=== PATIENT | male | born 1955 | race Caucasian/White ===

== ENCOUNTER 2018-07-25 16:37 | Emergency (ER) | payer BC ==
[~2018-07-25] VITALS: Ht 182.9 cm; Wt 90.9 kg
[~2018-07-25 16:37] MED LIST: AMBIEN 5MG TABLE5 MG PO; AMITRIPTYLINE H10 M1 PO; BENTYL 20MG20 MG/TAB PO; COPAXONE 20M20 MG/M1; DIAMOX 250MG250 MG PO; EFFEXOR XR75 MG/CAP PO; FIORICET W/CODE1 CA1 PO; FLEXERIL 1010 MG/TAB PO; GLUCOPHAGE1000 MG PO; GLUCOPHAGE500 MG/TAB PO; IMITREX50 MG PO; KLONOPIN 0.5MG0.5 MG PO; LIORESAL 1010 MG/TAB PO; LORTAB 5/500 501 TAB PO; NAPROSYN500 MG PO; NEURONTIN300 MG/CAP PO; PERCOCET 325 MG1 TAB PO; TOPAMAX 100MG100 M1 PO
[2018-07-25 16:43] VITALS: TEMP 97.2
[2018-07-25 16:58] LABS: BASO # 0.1 (0.0-0.2); BASO % 0.7 % (0.0-2.0); EOS # 0.5 (0.0-0.7); EOS % 5.4 % (0-4.0); GRAN # 5.6 (1.4-6.5); GRAN % 64.5 % (42.2-75.2); HEMATOCRIT 42.4 % (42.0-52.0); HEMOGLOBIN 14.3 g/dl (13.5-18.0); LYMPH # 1.9 (1.2-3.4); LYMPH % 22.4 % (20.0-51.0); MEAN CELL VOLUME 94 fl (80.0-100.0); MEAN CORPUSCULAR HEMOGLOBIN 32 pg (27.0-31.0); MEAN CORPUSCULAR HGB CONC 34 g/dl (33.0-37.0); MEAN PLATELET VOLUME 10.5 fl (7.4-10.4); MONO # 0.6 (0.1-0.6); MONO % 6.7 % (1.7-9.3); PLATELET COUNT 265 K/mm3 (130-400); RED BLOOD COUNT 4.53 M/mm3 (4.20-5.60); REDCELL DISTRIBUTION WIDTH-CV 12.8 % (11.5-14.5)
[2018-07-25 17:10] LABS: ALANINE AMINOTRANSFERASE 58 U/L (21-72); ALBUMIN 4.1 gm/dL (3.5-5.0); ALKALINE PHOSPHATASE 116 U/L (50-136); ANION GAP 8 mmol/L (7-16); AST,SGOT 37 U/L (15-37); BILIRUBIN,TOTAL 0.3 mg/dL (0.0-1.0); BLOOD UREA NITROGEN 12 mg/dL (9-20); CALCIUM 9.8 mg/dL (8.4-10.2); CARBON DIOXIDE 25 mmol/L (22-30); CHLORIDE 110 mmol/L (98-107); CREATININE, serum 1.14 mg/dL (0.66-1.25); GLUCOSE 337 mg/dL (74-106); POTASSIUM 4.3 mmol/L (3.4-5.0); SODIUM 143 mmol/L (137-145); TOTAL PROTEIN 6.7 gm/dL (6.4-8.2)
[2018-07-25] MEDS ORDERED: LIPITOR20 MG PO (17:15)
[2018-07-25] MEDS ORDERED: CORGARD20 MG PO (17:15)
[2018-07-25] MEDS ORDERED: NUVIGIL250 MG (17:16)
[2018-07-25 17:20] LABS: COLLECTION METHOD CLEAN CATCH
[2018-07-25 17:28] LABS: TROPONIN-I < 0.012 ng/mL (0.000-0.034)
[2018-07-25 17:33] LABS: MUCOUS Present /lpf; PH 5 (5-8); SQUAMOUS EPITHELIAL None Seen /hpf; URINE APPEARANCE Clear; URINE BACTERIA None Seen /hpf; URINE BILIRUBIN Negative (NEGATIVE); URINE BLOOD Negative (NEGATIVE); URINE COLOR Yellow; URINE GLUCOSE 3+ (NEGATIVE); URINE KETONE Negative (NEGATIVE); URINE LEUKOCYTE ESTERASE Negative (NEGATIVE); URINE NITRATE Negative (NEGATIVE); URINE PROTEIN(semi-quant) Negative (NEGATIVE); URINE RBC 0-2 /hpf; URINE UROBILINOGEN Negative (NEGATIVE)
[2018-07-25 17:40] LABS: TSH w REFLEX 0.644 uIU/mL (0.465-4.680)
[2018-07-25 18:19] LABS: ARTERIAL BLD GAS O2 SATURATION 96.1 % (92-100); ARTERIAL BLD GAS TCO2 CT 21.5; ARTERIAL BLOOD GAS BASE EXCESS -4.3 (-2-2); ARTERIAL BLOOD GAS HCO3 20.4 meq/L (22-26); ARTERIAL BLOOD GAS PCO2 36.2 mmHg (35-45); ARTERIAL BLOOD GAS PO2 89.8 mmHg (80-100); ARTERIAL BLOOD GAS pH 7.37 (7.35-7.45)
[2018-07-25] MEDS ORDERED: ANUSOL-HC2.5% RC (18:59)
[2018-07-25 19:02] VITALS: BP 179/89; PULSE 59
== END 2018-07-25 19:12 | disposition home or self-care (01) ==
LOC: COL.ER 16:37
PROVIDERS: Emergency Medicine
DX: T38.3X5A Adverse effect of insulin and oral hypoglycemic [antidiabetic] drugs, initial encounter (principal); E87.2 Acidosis; E11.9 Type 2 diabetes mellitus without complications; I10 Essential (primary) hypertension; R06.00 Dyspnea, unspecified; K64.9 Unspecified hemorrhoids; Z79.84 Long term (current) use of oral hypoglycemic drugs
CPT/HCPCS: J1815; J7030

== ENCOUNTER 2018-10-30 19:02 | Emergency (ER) | payer BC ==
[~2018-10-30] VITALS: Ht 182.9 cm; Wt 90.0 kg
[~2018-10-30 19:02] MED LIST changes: +ANUSOL-HC2.5% RC; +CORGARD20 MG PO; +LIPITOR20 MG PO; +NUVIGIL250 MG
[2018-10-30 19:07] VITALS: TEMP 98.9
[2018-10-30] MEDS ORDERED: TRESIBA FL100 UNIT/1 SQ (19:31)
[2018-10-30 20:17] LABS: BASO # 0.1 (0.0-0.2); BASO % 0.7 % (0.0-2.0); EOS # 0.3 (0.0-0.7); EOS % 3.1 % (0-4.0); GRAN # 8.3 (1.4-6.5); GRAN % 80.1 % (42.2-75.2); HEMATOCRIT 44.6 % (42.0-52.0); HEMOGLOBIN 14.8 g/dl (13.5-18.0); LYMPH # 0.9 (1.2-3.4); LYMPH % 9.1 % (20.0-51.0); MEAN CELL VOLUME 95 fl (80.0-100.0); MEAN CORPUSCULAR HEMOGLOBIN 32 pg (27.0-31.0); MEAN CORPUSCULAR HGB CONC 33 g/dl (33.0-37.0); MEAN PLATELET VOLUME 10.6 fl (7.4-10.4); MONO # 0.7 (0.1-0.6); MONO % 6.7 % (1.7-9.3); PLATELET COUNT 235 K/mm3 (130-400); REDCELL DISTRIBUTION WIDTH-CV 13.1 % (11.5-14.5)
[2018-10-30 20:21] LABS: ALBUMIN 4.2 gm/dL (3.5-5.0); BILIRUBIN,TOTAL 0.7 mg/dL (0.0-1.0); C-REACTIVE PROTEIN 1.4 mg/dL (0.0-0.9); CALCIUM 9.4 mg/dL (8.4-10.2); CREATININE, serum 1.28 mg/dL (0.66-1.25); POTASSIUM 4.3 mmol/L (3.4-5.0); TOTAL PROTEIN 7.1 gm/dL (6.4-8.2)
[2018-10-30 21:12] LABS: COLLECTION METHOD CLEAN CATCH
[2018-10-30 21:33] LABS: MUCOUS Present /lpf; PH 6 (5-8); SQUAMOUS EPITHELIAL None Seen /hpf; URINE APPEARANCE Clear; URINE BACTERIA None Seen /hpf; URINE BILIRUBIN Negative (NEGATIVE); URINE BLOOD Negative (NEGATIVE); URINE COLOR Yellow; URINE GLUCOSE 3+ (NEGATIVE); URINE KETONE Negative (NEGATIVE); URINE LEUKOCYTE ESTERASE Negative (NEGATIVE); URINE NITRATE Negative (NEGATIVE); URINE PROTEIN(semi-quant) Negative (NEGATIVE); URINE RBC 0-2 /hpf; URINE UROBILINOGEN Negative (NEGATIVE)
[2018-10-30] MEDS ORDERED: OMNICEF 300MG300 MG PO (23:46)
[2018-10-31 00:01] VITALS: BP 150/74; PULSE 72
== END 2018-10-31 00:05 | disposition home or self-care (01) ==
LOC: COL.ER 19:02
PROVIDERS: Emergency Medicine
DX: J20.9 Acute bronchitis, unspecified (principal); J02.9 Acute pharyngitis, unspecified; R53.81 Other malaise; Z79.4 Long term (current) use of insulin
CPT/HCPCS: J1100; J2405; J7030; Q9967

== ENCOUNTER 2018-11-01 23:30 | Emergency (ER) | payer BC ==
[~2018-11-01] VITALS: Ht 182.9 cm; Wt 88.6 kg
[~2018-11-01 23:30] MED LIST changes: +OMNICEF 300MG300 MG PO; +TRESIBA FL100 UNIT/1 SQ
[2018-11-01 23:33] VITALS: TEMP 98.5
[2018-11-02 00:32] LABS: BASO # 0.1 (0.0-0.2); BASO % 0.6 % (0.0-2.0); EOS # 0.4 (0.0-0.7); EOS % 4.5 % (0-4.0); GRAN % 59.4 % (42.2-75.2); HEMATOCRIT 41.3 % (42.0-52.0); HEMOGLOBIN 13.9 g/dl (13.5-18.0); LYMPH % 23.8 % (20.0-51.0); MEAN CELL VOLUME 93 fl (80.0-100.0); MEAN CORPUSCULAR HEMOGLOBIN 31 pg (27.0-31.0); MEAN CORPUSCULAR HGB CONC 34 g/dl (33.0-37.0); MEAN PLATELET VOLUME 10.5 fl (7.4-10.4); MONO % 11.3 % (1.7-9.3); PLATELET COUNT 203 K/mm3 (130-400); RED BLOOD COUNT 4.43 M/mm3 (4.20-5.60); REDCELL DISTRIBUTION WIDTH-CV 13.2 % (11.5-14.5)
[2018-11-02 00:41] LABS: INR 1.1 (0.8-3.0); PROTHROMBIN TIME 12.4 SECONDS (9.7-12.8)
[2018-11-02 00:53] LABS: ALANINE AMINOTRANSFERASE 58 U/L (21-72); ALBUMIN 3.9 gm/dL (3.5-5.0); ALKALINE PHOSPHATASE 100 U/L (50-136); ANION GAP 9 mmol/L (7-16); AST,SGOT 53 U/L (15-37); BILIRUBIN,TOTAL 0.5 mg/dL (0.0-1.0); BLOOD UREA NITROGEN 20 mg/dL (9-20); C-REACTIVE PROTEIN 2.9 mg/dL (0.0-0.9); CALCIUM 8.9 mg/dL (8.4-10.2); CARBON DIOXIDE 23 mmol/L (22-30); CHLORIDE 108 mmol/L (98-107); CREATININE, serum 1.25 mg/dL (0.66-1.25); GLUCOSE 103 mg/dL (74-106); POTASSIUM 3.9 mmol/L (3.4-5.0); SODIUM 140 mmol/L (137-145); TOTAL PROTEIN 6.7 gm/dL (6.4-8.2)
[2018-11-02 01:13] LABS: D-DIMER < 200.00 ng/mLDDu (200-230)
[2018-11-02 01:16] LABS: TROPONIN-I < 0.012 ng/mL (0.000-0.035)
[2018-11-02 01:38] LABS: MAGNESIUM 1.7 mg/dL (1.6-2.3)
[2018-11-02] MEDS ORDERED: TESSALON PERLE200 MG PO (03:17)
[2018-11-02 04:04] VITALS: BP 147/77; PULSE 68
== END 2018-11-02 04:08 | disposition home or self-care (01) ==
LOC: COL.ER 23:30
PROVIDERS: Emergency Medicine
DX: B34.9 Viral infection, unspecified (principal); G35 Multiple sclerosis; E78.5 Hyperlipidemia, unspecified; I10 Essential (primary) hypertension; E11.9 Type 2 diabetes mellitus without complications; J45.909 Unspecified asthma, uncomplicated; Z90.49 Acquired absence of other specified parts of digestive tract; Z98.890 Other specified postprocedural states; Z79.4 Long term (current) use of insulin
CPT/HCPCS: J2765; J2930; J3010; J7030

== ENCOUNTER 2019-04-09 18:28 | Emergency (ER) | payer BC, MEDICARE ==
[~2019-04-09] VITALS: Ht 182.9 cm; Wt 100.0 kg
[~2019-04-09 18:28] MED LIST changes: +TESSALON PERLE200 MG PO
[2019-04-09 18:38] VITALS: TEMP 97.7
[2019-04-09 19:24] LABS: BASO # 0.1 (0.0-0.2); BASO % 0.8 % (0.0-2.0); EOS # 0.6 (0.0-0.7); EOS % 5.3 % (0-4.0); GRAN # 6.9 (1.4-6.5); GRAN % 64.4 % (42.2-75.2); LYMPH # 2.4 (1.2-3.4); LYMPH % 22.7 % (20.0-51.0); MEAN CELL VOLUME 94 fl (80.0-100.0); MEAN CORPUSCULAR HEMOGLOBIN 32 pg (27.0-31.0); MEAN CORPUSCULAR HGB CONC 34 g/dl (33.0-37.0); MEAN PLATELET VOLUME 10.3 fl (7.4-10.4); MONO # 0.7 (0.1-0.6); MONO % 6.6 % (1.7-9.3); PLATELET COUNT 285 K/mm3 (130-400); REDCELL DISTRIBUTION WIDTH-CV 13.1 % (11.5-14.5)
[2019-04-09 19:38] LABS: ALANINE AMINOTRANSFERASE 35 U/L (21-72); ALBUMIN 4.3 gm/dL (3.5-5.0); ALKALINE PHOSPHATASE 119 U/L (50-136); ANION GAP 10 mmol/L (7-16); AST,SGOT 37 U/L (15-37); BILIRUBIN,TOTAL 0.3 mg/dL (0.0-1.0); BLOOD UREA NITROGEN 14 mg/dL (9-20); CALCIUM 9.7 mg/dL (8.4-10.2); CARBON DIOXIDE 23 mmol/L (22-30); CHLORIDE 110 mmol/L (98-107); CREATININE, serum 1.29 (0.66-1.25); GLUCOSE 111 mg/dL (74-106); POTASSIUM 4.2 mmol/L (3.4-5.0); SODIUM 143 mmol/L (137-145); TOTAL PROTEIN 7.1 gm/dL (6.4-8.2)
[2019-04-09 19:40] LABS: C-REACTIVE PROTEIN < 0.5 mg/dL (0.0-0.9)
[2019-04-09 19:48] LABS: TROPONIN-I < 0.012 ng/mL (0.000-0.035)
[2019-04-09] MEDS ORDERED: PROTONIX 40MG T40 MG PO (20:20)
[2019-04-09] MEDS ORDERED: CLEOCIN HC150 MG/CAP PO (20:20)
[2019-04-09 20:30] VITALS: BP 147/85; PULSE 66
== END 2019-04-09 20:30 | disposition home or self-care (01) ==
LOC: COL.ER 18:28
PROVIDERS: Emergency Medicine
DX: J02.9 Acute pharyngitis, unspecified (principal); E11.9 Type 2 diabetes mellitus without complications; F32.9 Major depressive disorder, single episode, unspecified; E78.00 Pure hypercholesterolemia, unspecified; Z79.4 Long term (current) use of insulin
CPT/HCPCS: J1100; J2405; J3010; J7030

== ENCOUNTER 2019-06-21 08:19 | Day surgery (SDC) | payer MEDICARE, BC ==
[~2019-06-21] VITALS: Ht 182.9 cm; Wt 94.4 kg
[~2019-06-21 08:19] MED LIST changes: +CLEOCIN HC150 MG/CAP PO; +PROTONIX 40MG T40 MG PO
[2019-06-21 08:46] VITALS: BP 137/79; PULSE 61; TEMP 97.8
[2019-06-21] MEDS ORDERED: NEURONTIN600 MG/TAB PO (08:58)
[2019-06-21] MEDS ORDERED: TOPAMAX50 MG PO ×2 (09:02→09:08)
[2019-06-21] MEDS ORDERED: PRILOSEC 20MG20 MG PO (09:09)
[2019-06-21] MEDS ORDERED: PROZAC 20MG20 MG PO (09:10)
[2019-06-21] MEDS ORDERED: SINEMET 25/101 UDTAB PO (09:11)
--- NOTE | 2019-06-21 09:19 | NUR ---
TO MAMI AT 0825- CALL LIGHT IN REACH
[2019-06-21 10:00] VITALS: BP 136/65; PULSE 63; TEMP 98.3
--- NOTE | 2019-06-21 10:00 | NUR ---
Patient arrives back to [place] alert, denies pain or nausea. Patient ambulates from cart to chair with standby assist and without any complications. Patient monitor applied, vitals stable. Patient's spouse at bedside.
--- NOTE | 2019-06-21 10:10 | NUR ---
Patient given water and muffin at this time.
[2019-06-21 10:15] VITALS: BP 123/69; PULSE 58
--- NOTE | 2019-06-21 10:20 | NUR ---
Patient tolerates food and drink without any complications. Denies pain or nausea. Reports he is ready to go home.
--- NOTE | 2019-06-21 10:30 | NUR ---
Dismissal instructions gone over with patient. Patient verbalized understanding, all questions answered.
[2019-06-21 10:31] VITALS: BP 126/72; PULSE 60
--- NOTE | 2019-06-21 10:35 | NUR ---
Patient dismissed via ambulation. Patient has steady gate and patient's spouse walking with him. Patient and spouse leave thanking staff for services.
== END 2019-06-21 10:35 | disposition home or self-care (01) ==
LOC: SDCO 08:19
DX: K21.9 Gastro-esophageal reflux disease without esophagitis (principal); K29.30 Chronic superficial gastritis without bleeding; K31.89 Other diseases of stomach and duodenum; K58.9 Irritable bowel syndrome, unspecified; E11.9 Type 2 diabetes mellitus without complications; G35 Multiple sclerosis; G89.29 Other chronic pain; F42.9 Obsessive-compulsive disorder, unspecified; D64.9 Anemia, unspecified; F41.9 Anxiety disorder, unspecified; G43.909 Migraine, unspecified, not intractable, without status migrainosus; Z90.49 Acquired absence of other specified parts of digestive tract; Z79.84 Long term (current) use of oral hypoglycemic drugs; Z79.899 Other long term (current) drug therapy; Z88.1 Allergy status to other antibiotic agents; Z88.3 Allergy status to other anti-infective agents; Z88.2 Allergy status to sulfonamides
CPT/HCPCS: J2704; J7030

== ENCOUNTER 2021-08-14 14:24 | Outpatient (RCR) | payer MEDICARE, OTHER ==
[~2021-08-14 14:24] MED LIST changes: +NEURONTIN600 MG/TAB PO; +PRILOSEC 20MG20 MG PO; +PROZAC 20MG20 MG PO; +SINEMET 25/101 UDTAB PO; +TOPAMAX50 MG PO
== END 2021-09-09 | disposition home or self-care (01) ==
LOC: WSST
DX: R49.0 Dysphonia (principal)

== ENCOUNTER 2021-10-21 12:05 | Inpatient (IN) | payer MEDICARE, OTHER ==
[~2021-10-21] VITALS: Ht 185.4 cm; Wt 88.8 kg
[~2021-10-21 12:05] MED LIST changes: +AMPYRA10 MG PO; +B-121000 MCG PO; +COPAXONE 20M20 MG/M1 SQ; +EFFEXOR-XR150 MG PO; +FIORICET 325 MG1 TA1 PO; +IMODIUM 2MG CAPS2 MG PO; +LEVEMIR FLEX100 U/ML SQ; +NORVASC 10MG10 MG PO; +NOVLOG SQ; +PREDNISONE20 MG PO; +QUESTRAN LI4 GM/5 GM PO; +TRESIBA100 UNIT/1 SQ; +TYLENOL 325MG325 MG PO; +VITAMIN B COMPL1 SGL PO; +VITAMIN D 50,1.25 MG PO; +VOLTAREN GEL 1%1 TU TP; +XALATAN EYE DROPS OU; +ZESTRIL 20MG TA20 MG PO; +ZYRTEC 10MG10 MG; +ZYRTEC 10MG10 MG PO; +ZYRTEC10MGSGL
[2021-10-21 16:28] VITALS: BP 170/79; PULSE 92; TEMP 97.5
[2021-10-21 16:38] VITALS: BP 170/79; PULSE 69; TEMP 97.5
[2021-10-21 18:00] VITALS: BP 160/110
--- NOTE | 2021-10-21 18:25 | NUR ---
Pt arrived to [facility] via w/c. Pt is A/O x4. His breathing is even and unlabored on RA. Lungs CTA. HRR. No N/V. POC discussed with patient who verbalizes understanding. Pt did have a lot of anxiety this afternoon, reported some chest pain at the time as well as a headache. States he felt overwhelmed with moving to a new room and upcoming therapies. Fioricet administered and assisted in relieving headache. Elevated BP, MIK Morgan notified. Pt resting more calmly, with his at bedside. Call light within reach.
--- NOTE | 2021-10-21 19:00 | NUR ---
RECEIVED CHANGE OF SHIFT REPORT FROM DAY SHIFT RN.
[2021-10-22 05:58] VITALS: BP 169/77; PULSE 72; TEMP 98.4
--- NOTE | 2021-10-22 07:10 | NUR ---
CHANGE OF SHIFT REPORT GIVEN TO DAY SHIFT RNs, KENDRICK.
--- NOTE | 2021-10-22 07:16 | NUR ---
Shift report recevied from art director RN.
--- NOTE | 2021-10-22 09:14 | NUR ---
ZACK met with the patient and his , Carolyn (ph#[phone]), to complete intake, as the patient is new to [facility]. The patient lives in [place] with his . He states that he needs some supervision with ADLs, which his assists with. He has a cane, walker, wheelchair, and motorized scooter. The patient's PCP is Dr. Amauri Manriquez and he receives his medications from [facility]. The patient does not have a DPOA-HC, but Carolyn states that the patient does have one completed and the form is at home. She states that she will bring it to the hospital, the next time she comes up. SW to continue to follow.
[2021-10-22 15:34] VITALS: BP 170/74; PULSE 74; TEMP 97.7
--- NOTE | 2021-10-22 19:00 | NUR ---
RECEIVED CHANGE OF SHIFT REPORT FROM DAY SHIFT RN. PATIENT RESTING IN BED WITH EXIT ALARM ON, CALL LIGHT WITHIN REACH. IN ROOM DURING REPORT.
[2021-10-23 05:24] VITALS: BP 176/84; PULSE 67; TEMP 97.7
--- NOTE | 2021-10-23 07:04 | NUR ---
CHANGE OF SHIFT REPORT GIVEN TO DAY SHIFT RNs, DELIO.
--- NOTE | 2021-10-23 14:33 | NUR ---
ZACK contacted the patient's , Carolyn, to review the IPR Team Conference Note with her. The team has set a tentative discharge for next , 10/31, with home health vs outpatient therapy. Carolyn is in agreement to the plan. She states that they would prefer outpatient therapy. Since the patient will likely need OT/ST as well, so informed Carolyn how [facility] only provides PT and we would need to look at a different clinic for those disciplines. Carolyn verbalized understanding and states that she will discuss this with the patient. A patient/family meeting was scheduled for next Thursday, 10/28, at 0930. ZACK then met with the patient and presented and reviewed the IPR Team Conference Note with him. He is in agreement to the plan and confirms that he would prefer outpatient therapy. He states that he is already set up at [facility] for PT and was suppose to be getting set up at [facility] for ST. ZACK to continue to follow.
[2021-10-23 17:08] VITALS: BP 147/65; PULSE 66; TEMP 98.1
--- NOTE | 2021-10-23 19:00 | NUR ---
RECEIVED CHANGE OF SHIFT REPORT FROM DAY SHIFT RN. BED ALARM ON, AT BEDSIDE, CALL LIGHT WITHIN REACH.
[2021-10-24 06:06] VITALS: BP 192/92; PULSE 55; TEMP 97.7
[2021-10-24 06:29] VITALS: BP 163/84
--- NOTE | 2021-10-24 07:15 | NUR ---
CHANGE OF SHIFT REPORT GIVEN TO DAY SHIFT RNKOSTA.
--- NOTE | 2021-10-24 13:15 | NUR ---
Admission QIM scores were reviewed by the team. Code of 6 chosen for eating was determined by team discussion to be the most usual performance for this patient during the assessment period. Code of 4 chosen for oral hygiene was determined by team discussion to be the most usual performance for this patient during the assessment period. Code of 4 chosen for toilet hygiene was determined by team discussion to be the most usual performance for this patient during the assessment period. Code of 3 chosen for shower/bathe self was determined by team discussion to be the most usual performance before interventions for this patient during the assessment period. Code of 4 chosen for upper body dressing was determined by team discussion to be the most usual performance before interventions for this patient during the assessment period. Code of 4 chosen for putting on/taking off footwear was determined by team discussion to be the most usual performance for this patient during the assessment period. Code of 4 chosen for rolling left to right was determined by team discussion to be the most usual performance before interventions for this patient during the assessment period. Code of 4 chosen for sit to lying was determined by team discussion to be the most usual performance before interventions for this patient during the assessment period. Code of 4 chosen for lying to sitting on side of bed was determined by team discussion to be the most usual performance for this patient during the assessment period. Code of 3 for chair/bed to chair transfers was determined by team discussion to be the most usual performance for this patient during the assessment period. Code of 3 chosen for walk 10 feet was determined by team discussion to be the most usual performance for this patient during the assessment period. Code of 88 chosen for walk 50 feet w/ 2 turns was determined by team discussion to be the most usual performance for this patient during the assessment period. Code of 88 chosen for walk 150 feet was determined by team discussion to be the most usual performance for this patient during the assessment period.--Katlin Cabrera,
[2021-10-24 17:03] VITALS: BP 142/77; PULSE 68; TEMP 97.3
--- NOTE | 2021-10-24 17:41 | NUR ---
PATIENT STABLE THIS SHIFT. COMPLAINED OF HEADACHES FREQUENTLY. OFFERED PRN MEDICATIONS. TOOK TYLENOL. PATIENT STILL COMPLAINING OF MILD HEADACHE BUT WANTS TO WAIT FOR MORE MEDICATION THERAPY. DENIES ANY OTHER PAIN AT THIS TIME. AMBULATES WELL ON OWN WITH USE OF WALKER. PARTICIPATED IN THERAPY TODAY WITH NO ISSUES. TAKES MEDS WHOLE. GOOD APPETITE. CONTINENT. NO CONFUSION NOTED THIS SHIFT, SPEAKS IN CLEAR FULL SENTENCES WITH GOOD INTENT.
--- NOTE | 2021-10-25 00:53 | NUR ---
Received report from day shift. Patient alert and oriented, resting in bed. Patient here for MS exacerbation. VSS. Patient complains of headache at this time, he relates it to being constipated and requests a suppository. PM meds given. Patient resting in bed with call light near.
[2021-10-25 04:50] VITALS: BP 142/77; PULSE 68; TEMP 97.3
[2021-10-25 05:14] LABS: BASO % 0.1 % (0.0-2.0); EOS # 0.2 K/mm3 (0.0-0.7); EOS % 1.6 % (0.0-4.0); GRAN # 9.2 K/mm3 (1.4-6.5); GRAN % 71.7 % (42.2-75.2); HEMATOCRIT 41.3 % (42.0-52.0); HEMOGLOBIN 14.2 g/dl (13.5-18.0); LYMPH # 2.5 K/mm3 (1.2-3.4); LYMPH % 19.4 % (20.0-51.0); MEAN CELL VOLUME 92 fl (80.0-100.0); MEAN CORPUSCULAR HEMOGLOBIN 32 pg (27-31); MEAN CORPUSCULAR HGB CONC 34 g/dl (33.0-37.0); MEAN PLATELET VOLUME 11.2 fl (7.4-10.4); MONO # 0.8 K/mm3 (0.1-0.6); MONO % 5.9 % (1.7-9.3); PLATELET COUNT 266 K/mm3 (130-400); REDCELL DISTRIBUTION WIDTH-CV 12.4 % (11.5-14.5)
[2021-10-25 05:28] LABS: CALCIUM 9.5 mg/dL (8.4-10.2); CREATININE, serum 1.33 mg/dL (0.72-1.25); MAGNESIUM 1.9 mg/dL (1.6-2.6); POTASSIUM 3.8 mmol/L (3.5-4.5)
--- NOTE | 2021-10-25 06:17 | NUR ---
Patient ambulated twice to the bathroom throughout shift. Patient denies any pain at this time and has no further complaints.
--- NOTE | 2021-10-25 07:10 | NUR ---
Patient is awake and resting in bed. Call light and bedside table are within reach. Will continue to monitor patient throughout shift.
--- NOTE | 2021-10-25 09:24 | NUR ---
Initial visit; Patient thanked [employer] for looking in on him and offering God's blessings and to keep him in [employer]'s prayers.
[2021-10-25 17:29] VITALS: BP 117/54; PULSE 71; TEMP 97.6
--- NOTE | 2021-10-25 20:00 | NUR ---
PT RESTING IN RECLINER. NEEDS REMINDED OF SAFETY. USES WALKER. PT TRIES TO GET UP ON OWN. ASSISTED TO BED. BED ALARM SET. CALL LIGHT IN REACH. DENIES FURTHER NEEDS.
--- NOTE | 2021-10-26 04:25 | NUR ---
PT HAS SLEPT THROUGH THE NIGHT. NO COMPLAINTS.
[2021-10-26 06:18] VITALS: BP 135/66; PULSE 61; TEMP 97.7
--- NOTE | 2021-10-26 08:00 | NUR ---
Patient laying in bed resting. A&Ox4. VSS. Denies pain and discomfort. Independent with feeds and using the urinal. Call light within reach. Bed alarm on
[2021-10-26 17:13] VITALS: BP 141/57; PULSE 92; TEMP 98.1
--- NOTE | 2021-10-26 17:45 | NUR ---
at the bedside. Patient standby assist to the bathroom. Independent with feeds and cares. A&Ox4. VSS. Reports pain in abdomen, no pain medication requested. Call light within reach. Bed alarm on
--- NOTE | 2021-10-26 19:52 | NUR ---
ASSISTED PT TO BR WITH WALKER WITH SBA. PT HAS STEADY AMB. DENIES COMPLAINTS. CALL LIGHT IN REACH.
--- NOTE | 2021-10-27 04:30 | NUR ---
PT UP TO BR WITH WALKER. VOIDED. BACK TO BED. CALL LIGHT IN REACH.
[2021-10-27 05:58] VITALS: BP 123/51; PULSE 59; TEMP 98.3
--- NOTE | 2021-10-27 06:17 | NUR ---
BLOOD SUGAR WAS 62. PROVIDED PROTEIN SNACK AND RECHECKED FOR RESULT OF 156 NOW.
--- NOTE | 2021-10-27 08:00 | NUR ---
Patient laying in bed, awake. A&Ox4. VSS. Denies pain and discomfort. Independent with feeds and standby assist with walker. Call light within reach. Bed alarm on
--- NOTE | 2021-10-27 17:17 | NUR ---
Patient had an uneventful day. Took a shower with assistance from and nursing staff. Reported having a BM today. A&Ox4. VSS. Independent with feeds and cares. Standby assist with walker. Call light within reach.
[2021-10-27 17:25] VITALS: BP 134/57; PULSE 74; TEMP 97.4
--- NOTE | 2021-10-27 20:00 | NUR ---
Pt doing well this evening. He does have some pain complaints in his RLQ. States he has had it for several days, not getting worse, but not getting better either. It was reported to me during shift change, and that physician is aware. Pt getting around very well with stand by assist. Pt is very talkative, in the room. PT denies any other needs, hopeful for a good nights sleep as he knows he will be busy with therapy tomorrow.
--- NOTE | 2021-10-28 04:08 | NUR ---
Pt has done well throughout the night. He has been sleeping most of the night. He has used his call light a couple of times to get up to use the bathroom. Pt remains steady on his feet using a walker and standby assist.
[2021-10-28 05:48] VITALS: BP 128/60; PULSE 72; TEMP 97.8
--- NOTE | 2021-10-28 08:20 | NUR ---
PT SITTING AT SIDE OF BED WORKING WITH THERAPY. PT ON ROOM AIR. PT STATES THAT HE IS HAVING SOME DISCOMFORT/BLOATING IN THE RIGHT SIDE OF HIS ABD. PT STATES "IT IS OK, I WILL PROBABLY WORK OUT THE SORENESS IN THERAPY." BOWEL SOUNDS ARE PRESENT. PT STATES NO NEEDS AT THIS TIME. CALL LIGHT IS WITHIN REACH.
--- NOTE | 2021-10-28 09:53 | NUR ---
ZACK and ZACK student attended the patient/family meeting. The patient's and son were at bedside. Also present was IPR Director, Dr. Mancini, PT, OT, and ST. IPR Director started by explaining the purpose of the meeting. Dr. Mancini then provided the patient and his family with a clinical update. PT/OT/ST discussed the patient's progress so far. Katlin, IPR Director, confirmed the discharge date for this , 10/31, with outpatient therapy. The patient and his family are in agreement to the plan. The patient states that he has chosen to switch outpatient therapy to the [facility] on the [place]. The team answered all questions. ZACK to schedule the appointments.
[2021-10-28 17:47] VITALS: BP 123/61; PULSE 77; TEMP 97.8
--- NOTE | 2021-10-29 01:30 | NUR ---
PATIENT DOING WELL TONIGHT. ALERT AND ORIENTED BUT IS REPETITIVE WITH QUESTIONS. C/O HEADACHE STARTING BUT NOT REQUESTING TYLENOL OR MIGRAINE MEDICINE AT THIS TIME. AMBULATES WITH WALKER AND STANDBY ASSIST TO BATHROOM THROUGHOUT NIGHT.
[2021-10-29 05:47] VITALS: BP 150/64; PULSE 64; TEMP 97.6
--- NOTE | 2021-10-29 08:47 | NUR ---
ZACK contacted [facility] to schedule the patient his outpatient PT/OT/ST appointments. The part time receptionist reports that they are pretty booked right now and she was only able to schedule the outpatient PT appointment for right now on 11/06 at 0930. She reports that PT will determine if the patient does need OT and they will schedule that with the patient. She states that she will also be checking with their ST on when they can get him in and give SW or the patient a call. ZACK notified the community support associate of the PT appointment.
[2021-10-29 15:53] VITALS: BP 142/63; PULSE 85; TEMP 97.4
--- NOTE | 2021-10-30 00:52 | NUR ---
ALERT AND OX4. VISITOR AT BEDSIDE DURING SHIFT CHANGE. PM MEDS GIVEN. PT MOD-I UP TO BR AND DOES WELL AMB W [place]. CALL LIGHT WI REACH.
--- NOTE | 2021-10-30 05:34 | NUR ---
RESTED THOUGH THE NIGHT WITHOUT INCIDENT. NEEDS ARE MET.
[2021-10-30 06:36] VITALS: BP 150/68; PULSE 66; TEMP 97.4
--- NOTE | 2021-10-30 07:21 | NUR ---
Shift report received from service engine repairer RN. Patient resting in bed. Call light is within his reach
--- NOTE | 2021-10-30 09:59 | NUR ---
Pt. sitting up in recliner in his room. He denies any pain or discomfort. Denies any nausea. He denies further needs at this time. Call light is within his reach
--- NOTE | 2021-10-30 15:00 | NUR ---
ZACK and ZACK student met with the patient to present the IPR Team Conference Note and to review the discharge plan for tomorrow with outpatient PT/OT/ST at [facility]. ZACK informed him of [facility]'s plan to follow up with him about the appointments. The patient verbalized understanding and is in agreement to the plan. He expressed is gratitude for [facility] and the hospital. ZACK presented the and read the IM form outloud to the patient. The patient verbalized understanding and agreement to discharge tomorrow. The patient signed the form. ZACK student provided him with a copy.
--- NOTE | 2021-10-30 15:27 | NUR ---
ZACK contacted [facility] to follow up about the ST appointment. An ST appointment was secured on 11/07 at 1100. The center receptionist reports that they are still not able to make the OT appointment yet and they will follow up with the patient on this. ZACK to notify the recovery unit operator of the appointment.
[2021-10-30 17:17] VITALS: BP 142/69; PULSE 79; TEMP 97.8
--- NOTE | 2021-10-30 20:25 | NUR ---
GAVE DULCOLAX SUPP FOR CONSTIPATION.
[2021-10-31 05:37] VITALS: BP 149/71; PULSE 68; TEMP 97.6
--- NOTE | 2021-10-31 06:46 | NUR ---
Shift report received from shift supervisor RN. Pt. is resting in bed. Call light is within his reach
[2021-10-31] MEDS ORDERED: NORVASC 10MG10 MG PO (09:48)
[2021-10-31] MEDS ORDERED: ZESTRIL 20MG TA20 MG PO (09:49)
[2021-10-31] MEDS ORDERED: HCTZ12.5TAB PO (09:51)
[2021-10-31] MEDS ORDERED: PREDNISONE20 MG PO (09:52)
[2021-10-31] MEDS ORDERED: TRESIBA FL100 UNIT/1 SQ ×2 (09:57→11:17)
[2021-10-31] MEDS ORDERED: FIORICET 325 MG1 TA1 PO (09:58)
[2021-10-31] MEDS ORDERED: MELATIN 3 MG-11 TAB PO (09:58)
--- NOTE | 2021-10-31 10:01 | NUR ---
The patient is to discharge back home with his today, 10/31, with outpatient PT/OT/ST at [facility]. SW to fax orders to [facility], once finalized. No additional needs at this time.
--- NOTE | 2021-10-31 11:22 | NUR ---
Pt. Health Summary and Discharge Instructions discussed with pt. and his spouse. Discussed the importance of keeping his follow up appointments. Personal belongings gathered by the spouse. Pt. escorted via wheelchair to car and seatbelted for ride home. Pt. and spouse had no further questions
== END 2021-10-31 11:15 | disposition home or self-care (01) | DRG 60 ==
LOC: MEDICAL 10-25 17:23
PROVIDERS: Internal Medicine; ADMIT Physical Medicine & Rehabilitation Sports Medicine
DX: G35 Multiple sclerosis (principal); G43.909 Migraine, unspecified, not intractable, without status migrainosus; E87.5 Hyperkalemia; E11.40 Type 2 diabetes mellitus with diabetic neuropathy, unspecified; I16.0 Hypertensive urgency; I12.9 Hypertensive chronic kidney disease with stage 1 through stage 4 chronic kidney disease, or unspecified chronic kidney disease; R47.81 Slurred speech; K59.00 Constipation, unspecified; E11.649 Type 2 diabetes mellitus with hypoglycemia without coma; K21.9 Gastro-esophageal reflux disease without esophagitis; N18.9 Chronic kidney disease, unspecified; R29.6 Repeated falls; G47.00 Insomnia, unspecified; R26.89 Other abnormalities of gait and mobility; F41.9 Anxiety disorder, unspecified; R19.7 Diarrhea, unspecified; R53.81 Other malaise; Z73.6 Limitation of activities due to disability; Z98.1 Arthrodesis status; Z88.1 Allergy status to other antibiotic agents; Z88.2 Allergy status to sulfonamides; Z88.8 Allergy status to other drugs, medicaments and biological substances; Z79.84 Long term (current) use of oral hypoglycemic drugs; Z79.4 Long term (current) use of insulin; Z79.52 Long term (current) use of systemic steroids; Z20.828 Contact with and (suspected) exposure to other viral communicable diseases
CPT/HCPCS: 99223; 99231-AI; 99232-AI; A9284; J1650; J1815; J7512

== ENCOUNTER → 2021-11-07 | Outpatient (RCR) | payer MEDICARE, OTHER ==
[~2021-11-07] MED LIST changes: +HCTZ12.5TAB PO; +MELATIN 3 MG-11 TAB PO
== END | disposition home or self-care (01) ==
LOC: WSST → MKS.ESL.PT 11-06 09:25 → WSST 11:00
DX: G35 Multiple sclerosis (principal)

== ENCOUNTER 2021-12-05 10:30 | Outpatient (RCR) | payer MEDICARE, OTHER | END 2021-12-07 | disposition home or self-care (01) | LOC: WSST | DX: R49.0 Dysphonia (principal); R47.1 Dysarthria and anarthria; R41.841 Cognitive communication deficit; G35 Multiple sclerosis ==

== ENCOUNTER → 2021-12-11 | Outpatient (CLI) | payer MEDICARE, OTHER | LOC: MHCPAIN 14:21 | DX: M54.6 Pain in thoracic spine (principal); G35 Multiple sclerosis | CPT/HCPCS: G0463 ==

== ENCOUNTER 2022-01-02 10:30 | Outpatient (RCR) | payer MEDICARE, OTHER | END 2022-01-07 | disposition home or self-care (01) | LOC: WSST | DX: R47.1 Dysarthria and anarthria (principal); R49.0 Dysphonia; R41.841 Cognitive communication deficit; G35 Multiple sclerosis ==

== ENCOUNTER → 2022-01-13 | Outpatient (CLI) | payer MEDICARE, OTHER | LOC: MHCPAIN 11:24 | DX: M54.6 Pain in thoracic spine (principal); M79.2 Neuralgia and neuritis, unspecified; G35 Multiple sclerosis | CPT/HCPCS: G0463 ==

== ENCOUNTER 2022-02-04 10:30 | Outpatient (RCR) | payer MEDICARE, OTHER | END 2022-02-06 | disposition home or self-care (01) | LOC: WSST | DX: R49.0 Dysphonia (principal); R41.841 Cognitive communication deficit; G35 Multiple sclerosis ==

== ENCOUNTER 2022-02-27 11:15 | Outpatient (RCR) | payer MEDICARE, OTHER | END 2022-03-09 | disposition home or self-care (01) | LOC: MKS.ESL.PT | DX: G35 Multiple sclerosis (principal); M54.6 Pain in thoracic spine; R47.1 Dysarthria and anarthria; R49.0 Dysphonia; R41.841 Cognitive communication deficit ==

== ENCOUNTER 2022-04-08 11:15 | Outpatient (RCR) | payer MEDICARE, OTHER | END 2022-04-09 | disposition home or self-care (01) | LOC: MKS.ESL.PT | DX: G35 Multiple sclerosis (principal) ==

== ENCOUNTER 2022-09-05 10:00 | Outpatient (RCR) | payer MEDICARE, OTHER ==
[~2022-09-05 10:00] MED LIST changes: +CEFTIN500 MG PO; +KERENDIA10 MG PO
[2022-09-22] MEDS ORDERED: NORCO 325 MG-51 TAB PO (19:53)
== END 2022-09-09 | disposition home or self-care (01) ==
LOC: MKS.ESL.PT
DX: G35 Multiple sclerosis (principal)

== ENCOUNTER 2022-09-20 23:13 | Emergency (ER) | payer MEDICARE, OTHER ==
[2022-09-20 23:26] VITALS: TEMP 98.5
[2022-09-21 00:15] LABS: BASO # 0.1 K/mm3 (0.0-0.2); BASO % 0.9 % (0.0-2.0); EOS # 0.3 K/mm3 (0.0-0.7); EOS % 3.4 % (0.0-4.0); GRAN # 5.6 K/mm3 (1.4-6.5); GRAN % 62.6 % (42.2-75.2); HEMOGLOBIN 11.4 g/dl (13.5-18.0); LYMPH # 1.9 K/mm3 (1.2-3.4); LYMPH % 21.8 % (20.0-51.0); MEAN CELL VOLUME 93 fl (80.0-100.0); MEAN CORPUSCULAR HEMOGLOBIN 32 pg (27-31); MEAN CORPUSCULAR HGB CONC 34 g/dl (33.0-37.0); MEAN PLATELET VOLUME 10.3 fl (7.4-10.4); PLATELET COUNT 298 K/mm3 (130-400); RED BLOOD COUNT 3.61 M/mm3 (4.20-5.60); REDCELL DISTRIBUTION WIDTH-CV 12.7 % (11.5-14.5)
[2022-09-21 00:16] LABS: HEMATOCRIT 33.4 % (42.0-52.0)
[2022-09-21 00:26] LABS: STREP SCREEN NEGATIVE
[2022-09-21 00:29] LABS: MONOSCREEN NEGATIVE
[2022-09-21 00:32] LABS: ALBUMIN 3.3 gm/dL (3.4-4.8); BILIRUBIN,TOTAL 0.5 mg/dL (0.2-1.2); CALCIUM 9.8 mg/dL (8.4-10.2); POTASSIUM 4.7 mmol/L (3.5-4.5)
[2022-09-21 00:53] LABS: TROPONIN-I 0.024 ng/mL (0.00-0.033); TSH w REFLEX 0.744 uIU/mL (0.350-4.940)
[2022-09-21 01:03] LABS: TOTAL PROTEIN 6.7 gm/dL (6.2-8.1)
[2022-09-21 01:35] LABS: COLLECTION METHOD CLEAN CATCH
[2022-09-21 01:45] LABS: PH 5.5 (5.0-8.5); URINE APPEARANCE Clear (CLEAR/HAZY); URINE BLOOD Negative (NEGATIVE); URINE COLOR Yellow (YELLOW); URINE GLUCOSE 2+ (NEGATIVE); URINE KETONE Negative (NEGATIVE); URINE NITRATE Negative (NEGATIVE); URINE PROTEIN(semi-quant) 1+ (NEGATIVE); URINE UROBILINOGEN 0.2 E.U/dL (0.2-1.0)
[2022-09-21 01:48] LABS: MUCOUS Present (NOT PRESENT); SQUAMOUS EPITHELIAL None Seen /hpf (0-10); URINE BACTERIA None Seen /hpf (NONE SEEN); URINE RBC None Seen /hpf (0-2)
[2022-09-21] MEDS ORDERED: MAGIC MOUTH PO (02:01)
[2022-09-21] MEDS ORDERED: AMOXICILLIN 50500 MG PO ×3 (02:01→02:13)
[2022-09-21 02:20] VITALS: BP 153/84; PULSE 98
[2022-09-22] MEDS ORDERED: NORCO 325 MG-51 TAB PO (19:53)
== END 2022-09-21 02:11 | disposition home or self-care (01) ==
LOC: COL.ER 23:13
PROVIDERS: Emergency Medicine
DX: J02.9 Acute pharyngitis, unspecified (principal); Z20.822 Contact with and (suspected) exposure to COVID-19; Z88.1 Allergy status to other antibiotic agents
CPT/HCPCS: J7120; J8540

== ENCOUNTER 2022-12-04 10:30 | Outpatient (RCR) | payer MEDICARE, OTHER ==
[~2022-12-04 10:30] MED LIST changes: +AMOXICILLIN 50500 MG PO; +MAGIC MOUTH PO; +NORCO 325 MG-51 TAB PO
== END 2022-12-07 | disposition home or self-care (01) ==
LOC: MKS.ESL.PT
DX: G35 Multiple sclerosis (principal)

== ENCOUNTER 2023-03-26 10:45 | Outpatient (RCR) | payer MEDICARE, OTHER | END 2023-04-09 | disposition home or self-care (01) | LOC: MKS.ESL.PT | DX: G35 Multiple sclerosis (principal); U07.1 COVID-19 ==

== ENCOUNTER 2023-05-07 13:30 | Outpatient (RCR) | payer MEDICARE, OTHER | END 2023-05-09 | disposition home or self-care (01) | LOC: MKS.ESL.PT | DX: G35 Multiple sclerosis (principal) ==

== ENCOUNTER 2023-09-16 14:30 | Outpatient (RCR) | payer MEDICARE, OTHER | END 2023-10-05 14:49 | disposition home or self-care (01) | LOC: MKS.ESL.PT 14:30 | DX: G35 Multiple sclerosis (principal) ==

== ENCOUNTER 2024-01-25 15:18 | Inpatient (IN) | payer MEDICARE, OTHER ==
[~2024-01-25] VITALS: Ht 180.3 cm; Wt 94.8 kg
[2024-01-25 15:54] LABS: BASO # 0.1 K/mm3 (0.0-0.2); BASO % 0.8 % (0.0-2.0); EOS # 0.5 K/mm3 (0.0-0.7); EOS % 3.6 % (0.0-4.0); GRAN # 11.1 K/mm3 (1.4-6.5); GRAN % 77.8 % (42.2-75.2); LYMPH # 1.8 K/mm3 (1.2-3.4); LYMPH % 12.3 % (20.0-51.0); MEAN CELL VOLUME 97 fl (80.0-100.0); MEAN CORPUSCULAR HEMOGLOBIN 31 pg (27-31); MEAN CORPUSCULAR HGB CONC 33 g/dl (33.0-37.0); MEAN PLATELET VOLUME 10.2 fl (7.4-10.4); MONO # 0.7 K/mm3 (0.1-0.6); PLATELET COUNT 338 K/mm3 (130-400); RED BLOOD COUNT 3.82 M/mm3 (4.20-5.60); REDCELL DISTRIBUTION WIDTH-CV 13.1 % (11.5-14.5)
[2024-01-25 15:55] LABS: HEMATOCRIT 36.9 % (42.0-52.0)
[2024-01-25] MEDS ORDERED: LR 1,000 ML IV ONE ×2 (16:00→16:45)
[2024-01-25 16:15] LABS: ALANINE AMINOTRANSFERASE 30 U/L (0-55); ALBUMIN 3.8 g/dL (3.4-4.8); ALKALINE PHOSPHATASE 110 U/L (40-150); ANION GAP 13 mmol/L (7-16); AST,SGOT 22 U/L (5-34); BILIRUBIN,TOTAL 0.6 mg/dL (0.2-1.2); BLOOD UREA NITROGEN 28 mg/dL (8-26); CALCIUM 10.1 mg/dL (8.4-10.2); CHLORIDE 102 mEq/L (98-107); CREATININE, serum 2.88 mg/dL (0.72-1.25); LIPASE 62 U/L (8-78); POTASSIUM 5.3 mEq/L (3.5-4.5); SODIUM 133 mEq/L (136-145); TOTAL PROTEIN 6.6 g/dl (6.2-8.1)
[2024-01-25 16:29] LABS: GLUCOSE 406 mg/dL (70-99); TROPONIN-I < 0.010 ng/mL (0.00-0.033)
[2024-01-25 17:49] LABS: COLLECTION METHOD CLEAN CATCH
[2024-01-25 17:54] LABS: URINE APPEARANCE CLEAR (CLEAR/HAZY); URINE BLOOD TRACE (NEGATIVE); URINE COLOR ORANGE (YELLOW); URINE GLUCOSE 3+ (NEGATIVE); URINE KETONE NEGATIVE (NEGATIVE); URINE NITRATE POSITIVE (NEGATIVE); URINE PROTEIN(semi-quant) 1+ (NEGATIVE)
[2024-01-25] MEDS ORDERED: LR 500 ML IV ONE (19:00)
[2024-01-25] MEDS ORDERED: Insulin Lispro (HumaLOG) SQ SCH (20:51)
[2024-01-25] MEDS ORDERED: Heparin 5,000 UNITS/ML 1 ML VIAL SQ SCH (20:58)
[2024-01-25] MEDS ORDERED: Insulin Regular Human (NovoLIN R/HumuLIN R) IV ONE (21:00)
[2024-01-25] MEDS ORDERED: Insulin Glargine-ygfn (Lantus) SQ ONE (21:00)
[2024-01-25] MEDS ORDERED: AMITRIPTYLINE H50 M1 PO (21:11)
[2024-01-25] MEDS ORDERED: AMBIEN 10MG10 MG PO (21:12)
[2024-01-25] MEDS ORDERED: KERENDIA10 MG PO (21:14)
[2024-01-25] MEDS ORDERED: TRESIBA FL100 UNIT/1 SQ (21:16)
[2024-01-25] MEDS ORDERED: CIPRO 500MG TA500 MG PO (21:17)
[2024-01-25] MEDS ORDERED: GLUCOTROL10 MG PO (21:18)
[2024-01-25] MEDS ORDERED: FLOMAX 0.40.4 MG/CAP PO (21:19)
[2024-01-25] MEDS ORDERED: VENLAFAXINE225 MG PO (21:20)
--- NOTE | 2024-01-25 21:31 | NUR ---
REPORT RECIEVED FROM JENN LOGAN IN THE ER AT THIS TIME.
[2024-01-25] MEDS ORDERED: Dextrose 50% Water 25 GM/50 ML SYRINGE IV PRN (21:45)
[2024-01-25] MEDS ORDERED: Glucagon 1 MG VIAL IM PRN (21:45)
[2024-01-25] MEDS ORDERED: Dextrose (Glucose) 15 GM (4 x 3.75 GM) Chewable TABLET PACK PO PRN (21:45)
[2024-01-25] MEDS ORDERED: *Potassium Replacement Protocol MC SCH (21:45)
[2024-01-25 22:00] VITALS: BP 148/79; PULSE 63; TEMP 97.6
--- NOTE | 2024-01-25 22:00 | NUR ---
MALE PATIENT ARRIVED TO ROOM #308 VIA WHEELCHAIR FROM ER. PATIENT ASSISTED UP TO BATHROOM WITH STAND BY ASSIST. PATIENT GAIT STEADY. PATIENT VOIDED 50 ML OF CLEAR STEPHANIE URINE. PATIENT ASSISTED TO BED AND HELPED TO REPOSITION FOR COMFORT. INT TO RIGHT FOREARM INTACT WITH NO COMPLICATIONS NOTED. TELEMETRY INTACT. LR STARTED BACK INFUSING INTO RIGHT FOREARM WITH NO COMPLICATIONS NOTED. INITAL INTAKE AND ASSESSMENT COMPLETED AT THIS TIME. VITAL SIGNS STABLE. PATIENT ON ROOM AIR. BLOOD SUGAR CHECKED WITH RESULT OF 124. PATIENT REQUESTED SOMETHING TO EAT AND WAS GIVEN SANDWICH TRAY WITH PITCHER OF ICE WATER. PATIENT AND VERBALIZED UNDERSTANDING OF CALL LIGHT AND BED CONTROLS. PATIENT ALSO VERBALIZED UNDERSTANDING THAT HOSPITALIST WOULD BE CALLED ABOUT ORDER FOR REGULAR INSULIN ORDER FOR CLAIRIFICATION. PATIENT DENIES ANY OTHER NEEDS AT THIS TIME. BED IN LOW POSITION WITH WHEELS LOCKED WITH RAILS UP X3 AND CALL LIGHT WITHIN REACH. BED ALARM ON.
[2024-01-25] MEDS ORDERED: COPAXONE 20M20 MG/M1 SQ (22:47)
[2024-01-25] MEDS ORDERED: NS 1,000 ML IV SCH (23:45)
--- NOTE | 2024-01-25 23:45 | NUR ---
HOSPITALIST KERRIE MCBRIDE TALKED TO ABOUT PATIENT'S HOME MED REC, REGULAR INSULIN ORDERED, AND ORDERED LANTUS. NEW ORDERS RECIEVED IN EMAR AND VERBAL ORDER RECIEVED TO HOLD OFF ON REGULAR INSULIN BUT GIVE LANTUS INSULIN.
[2024-01-26] VITALS (12 sets, daily range): BP systolic 117–168; BP diastolic 58–86; PULSE 51–87; TEMP 97.5–98.2
--- NOTE | 2024-01-26 00:25 | NUR ---
PATIENT CALLED PRIMARY NURSE TO ROOM. PATIENT SITTING ON EDGE OF BED AFTER TRYING TO AMBULATE TO BATHROOM DUE URGENCY TO VOID. PATIENT STATED "I TRIED TO CLEAN IT UP." URINE NOTED TO FLOOR OF BATHROOM COMING OUT TOWARD BED. PATIENT ASSURED THAT IT WAS OKAY AND WOULD BE CLEANED UP BY PRIMARY NURSE. GOWN CHANGED AND NEW NON-SKID SOCKS APPLIED TO FEET. PATIENT ASSISTED TO REPOSITION IN BED FOR COMFORT AND CONDUM CATH APPLIED PER DR. SALAZAR PERVIOUS CONVERSTATION WITH PATIENT. PATIENT TOLERATED WELL. PATIENT DENIES ANY OTHER NEEDS. BED IN LOW POSITION WITH WHEELS LOCKED WITH RAILS UP X3 AND CALL LIGHT WITHIN REACH. BED ALARM ON.
--- NOTE | 2024-01-26 03:55 | NUR ---
PATIENT C/O RIGHT FOOT TINGLING AND BURNING ALONG WITH PAIN. HOSPITALIST KERRIE TANNER APRN TALKED TO IN HALLWAY AND VERBAL ORDER RECIEVED TO GIVE MORNING DOSE OF KLONOPIN AND NEURONTIN ALONG WITH NEW ORDER FOR TYLENOL.
[2024-01-26] MEDS ORDERED: Acetaminophen 325 MG TAB PO PRN (04:00)
[2024-01-26 06:52] LABS: BASO # 0.1 K/mm3 (0.0-0.2); BASO % 0.5 % (0.0-2.0); EOS # 0.6 K/mm3 (0.0-0.7); EOS % 6.2 % (0.0-4.0); GRAN # 5.5 K/mm3 (1.4-6.5); GRAN % 59.9 % (42.2-75.2); HEMOGLOBIN 10.4 g/dl (13.5-18.0); LYMPH # 2.4 K/mm3 (1.2-3.4); LYMPH % 26.4 % (20.0-51.0); MEAN CELL VOLUME 95 fl (80.0-100.0); MEAN CORPUSCULAR HEMOGLOBIN 31 pg (27-31); MEAN CORPUSCULAR HGB CONC 32 g/dl (33.0-37.0); MEAN PLATELET VOLUME 10.3 fl (7.4-10.4); MONO # 0.6 K/mm3 (0.1-0.6); MONO % 6.6 % (1.7-9.3); PLATELET COUNT 265 K/mm3 (130-400); RED BLOOD COUNT 3.39 M/mm3 (4.20-5.60); REDCELL DISTRIBUTION WIDTH-CV 13.1 % (11.5-14.5)
[2024-01-26 06:56] LABS: HEMATOCRIT 32.2 % (42.0-52.0)
[2024-01-26 07:01] LABS: ALBUMIN 3.2 g/dL (3.4-4.8); CALCIUM 9.4 mg/dL (8.4-10.2); CREATININE, serum 2.39 mg/dL (0.72-1.25); MAGNESIUM 1.8 mg/dL (1.6-2.6); PHOSPHOROUS 3.1 mg/dL (2.3-4.7); POTASSIUM 4.2 mEq/L (3.5-4.5)
[2024-01-26] MEDS ORDERED: Gabapentin 300 MG CAP PO SCH (09:00)
[2024-01-26] MEDS ORDERED: clonazePAM 0.5 MG TAB PO SCH (09:00)
--- NOTE | 2024-01-26 09:20 | NUR ---
Patient alert and oriented and in no distress. at bedside visiting. Patient reports some discomfort around his "prostate area". Luis Daniel has an external liberty catheter which is freely draining clear yellow urine. No complications noted with catheter. Denies any other concerns or complaints at this time. Notified hospitalist about patient's complaint of pain. Awaiting further orders.
[2024-01-26] MEDS ORDERED: Patient's Own Medication Item SQ SCH (11:00)
[2024-01-26] MEDS ORDERED: oxyCODONE 5 MG TAB PO PRN (11:00)
--- NOTE | 2024-01-26 11:28 | NUR ---
Social work student met with patient to discuss discharge planning. Patient lives is retired and lives in [place] with [place] (Carolyn) (ph#[phone]) and sees Dr. Manriquez for primary care. Patient gets medications from [facility] with no difficulties affording. Patient uses a cane for safety and is independent with ADLS. Patient states he has DPOA-HC which designates his [place]. Patient plans to return home at time of discharge. Discharge plan: home
[2024-01-26] MEDS ORDERED: VITAMIN D 50,1.25 MG PO (12:13)
[2024-01-26] MEDS ORDERED: Acetaminophen 500 MG TAB PO SCH (14:00)
--- NOTE | 2024-01-26 20:42 | NUR ---
PATIENT RESTING IN BED WITH TV OFF WITH NO FAMILY PRESENT WITH NO ACUTE DISTRESS NOTED. PATIENT ON ROOM AIR. NS INFUSING INTO RIGHT FOREARM WITH NO COMPLICATIONS NOTED. CONDOM CATH INTACT, PATENT, AND DRAINING ORGANE CLEAR URINE. ASSESSMENT AND MEDICATION ADMINISTRATION COMPLETED AT THIS TIME. PAIENT TOLERATED WELL. PATIENT C/O BACK ITCHING. LOTION APPLIED. PATIENT REQUESTED ICE AND WAS GIVEN. ALL NEEDS MET. BED IN LOW POSITION WITH WHEELS LOCKED WITH RAILS UP X3 AND CALL LIGHT WITHIN REACH. BED ALARM ON.
[2024-01-26] MEDS ORDERED: Amitriptyline 50 MG TAB PO SCH (21:00)
[2024-01-26] MEDS ORDERED: Atorvastatin 20 MG TAB PO SCH (21:00)
[2024-01-26] MEDS ORDERED: Insulin Lispro (HumaLOG) SQ SCH (21:00)
[2024-01-27] VITALS (12 sets, daily range): BP systolic 103–160; BP diastolic 65–83; PULSE 77–82; TEMP 97.6–98.3
[2024-01-27 06:54] LABS: BASO # 0.1 K/mm3 (0.0-0.2); BASO % 0.7 % (0.0-2.0); EOS # 0.2 K/mm3 (0.0-0.7); EOS % 2.2 % (0.0-4.0); GRAN # 5.4 K/mm3 (1.4-6.5); HEMOGLOBIN 11.2 g/dl (13.5-18.0); LYMPH # 1.7 K/mm3 (1.2-3.4); LYMPH % 21.5 % (20.0-51.0); MEAN CELL VOLUME 98 fl (80.0-100.0); MEAN CORPUSCULAR HEMOGLOBIN 32 pg (27-31); MEAN CORPUSCULAR HGB CONC 32 g/dl (33.0-37.0); MEAN PLATELET VOLUME 10.9 fl (7.4-10.4); MONO # 0.4 K/mm3 (0.1-0.6); MONO % 5.3 % (1.7-9.3); PLATELET COUNT 225 K/mm3 (130-400); RED BLOOD COUNT 3.55 M/mm3 (4.20-5.60); REDCELL DISTRIBUTION WIDTH-CV 12.9 % (11.5-14.5)
[2024-01-27 07:13] LABS: ALBUMIN 3.3 g/dL (3.4-4.8); CALCIUM 9.6 mg/dL (8.4-10.2); CREATININE, serum 2.12 mg/dL (0.72-1.25); MAGNESIUM 1.7 mg/dL (1.6-2.6); PHOSPHOROUS 3.5 mg/dL (2.3-4.7); POTASSIUM 4.4 mEq/L (3.5-4.5)
[2024-01-27 08:11] LABS: HEMATOCRIT 34.8 % (42.0-52.0)
[2024-01-27] MEDS ORDERED: Acetamin/Butalbital/Caffeine 325-50-40 MG TAB PO PRN (09:30)
--- NOTE | 2024-01-27 11:02 | NUR ---
Patient alert and oriented x4. Complains of headache, scheduled Tylenol administered. Orders obained for new PRN medication for headache relief. Tolerating food and fluids well. Tolerating x1 assistance with activity around room. Telemetry discontinued per orders. Condom catheter removed, patient voiding into urinal and ambulating to bathroom. NS and Zosyn infusing per orders. at bedside. Call light within reach, fall precautions in place.
--- NOTE | 2024-01-27 14:03 | NUR ---
Social work student met with patient to discuss home health. SW provided [email or web address] list of HH agencies and patient was unsure he would need services. Patient stated he would review list with and let SW know what they decide tomorrow morning. SW will follow up tomorrow morning.
--- NOTE | 2024-01-27 20:34 | NUR ---
PATIENT RESTING IN BED WATCHING IN TV. IS AT BEDSIDE. PATIENT IS CURRENTLY STABLE ON ROOM AIR AND DENIES ANY PAIN AT THIS TIME. CALL LIGHT IS WITHIN REACH. BED LOCKED AND IN LOW POSTIION.
[2024-01-28 01:47] VITALS: BP_SYST 160
[2024-01-28 03:03] VITALS: BP 151/77; PULSE 75; TEMP 98
[2024-01-28 04:30] VITALS: BP_SYST 151
[2024-01-28 06:48] LABS: BASO # 0.1 K/mm3 (0.0-0.2); EOS # 0.5 K/mm3 (0.0-0.7); EOS % 8.7 % (0.0-4.0); GRAN # 2.6 K/mm3 (1.4-6.5); GRAN % 50.2 % (42.2-75.2); HEMOGLOBIN 10.9 g/dl (13.5-18.0); LYMPH # 1.8 K/mm3 (1.2-3.4); LYMPH % 34.1 % (20.0-51.0); MEAN CELL VOLUME 97 fl (80.0-100.0); MEAN CORPUSCULAR HEMOGLOBIN 31 pg (27-31); MEAN CORPUSCULAR HGB CONC 32 g/dl (33.0-37.0); MEAN PLATELET VOLUME 10.5 fl (7.4-10.4); MONO # 0.3 K/mm3 (0.1-0.6); MONO % 5.2 % (1.7-9.3); PLATELET COUNT 258 K/mm3 (130-400); RED BLOOD COUNT 3.48 M/mm3 (4.20-5.60); REDCELL DISTRIBUTION WIDTH-CV 13.1 % (11.5-14.5)
[2024-01-28 06:55] LABS: HEMATOCRIT 33.9 % (42.0-52.0)
[2024-01-28 07:07] LABS: ALBUMIN 3.3 g/dL (3.4-4.8); CALCIUM 9.7 mg/dL (8.4-10.2); CREATININE, serum 2.24 mg/dL (0.72-1.25); MAGNESIUM 1.7 mg/dL (1.6-2.6); PHOSPHOROUS 2.8 mg/dL (2.3-4.7); POTASSIUM 4.3 mEq/L (3.5-4.5)
[2024-01-28 07:40] VITALS: BP 131/76; PULSE 73; TEMP 98.7
[2024-01-28] MEDS ORDERED: LEVAQUIN 2250 MG/TAB PO (08:33)
--- NOTE | 2024-01-28 09:05 | NUR ---
patient alert and oriented x4. patient reported some headache but did not want medication for it. patient is room air. at bedside. patient sitting in bed resting. call light within reach. bed at lowest position. bed alarm on.
--- NOTE | 2024-01-28 09:40 | NUR ---
patient was given discharge orders. patient denied any questions. patient IV removed. patient instructed to call when ready for PCT to escort patient to hospital entrace via wheelchair. call light within reach. bed at lowest position.
[2024-01-28 09:47] VITALS: BP_SYST 131
--- NOTE | 2024-01-28 14:40 | NUR ---
[facility]co was notified patient discharged home. SW contacted patient to follow up on Home Health. Patient stated he did not feel he needed these services at this time. SW encouraged patient that he could always contact his PCP if he changes his mind.
== END 2024-01-28 09:50 | disposition home or self-care (01) | DRG 872 ==
LOC: COL.ER 15:18 → MEDICAL 19:48
PROVIDERS: Emergency Medicine; ADMIT Internal Medicine
DX: A41.9 Sepsis, unspecified organism (principal); N39.0 Urinary tract infection, site not specified; G35 Multiple sclerosis; Z20.822 Contact with and (suspected) exposure to COVID-19; I95.9 Hypotension, unspecified; F41.9 Anxiety disorder, unspecified; F32.A Depression, unspecified; E78.5 Hyperlipidemia, unspecified; I12.9 Hypertensive chronic kidney disease with stage 1 through stage 4 chronic kidney disease, or unspecified chronic kidney disease; E11.65 Type 2 diabetes mellitus with hyperglycemia; N18.32 Chronic kidney disease, stage 3b; E11.22 Type 2 diabetes mellitus with diabetic chronic kidney disease; E11.40 Type 2 diabetes mellitus with diabetic neuropathy, unspecified; Z85.46 Personal history of malignant neoplasm of prostate; Z90.49 Acquired absence of other specified parts of digestive tract; Z88.1 Allergy status to other antibiotic agents; Z88.2 Allergy status to sulfonamides; Z88.8 Allergy status to other drugs, medicaments and biological substances; Z79.4 Long term (current) use of insulin; Z79.899 Other long term (current) drug therapy; Z91.011 Allergy to milk products; Z23 Encounter for immunization
CPT/HCPCS: J1644; J1815; J2543; J7030; J7120

== ENCOUNTER 2024-05-04 19:41 | Emergency (ER) | payer MEDICARE, OTHER ==
[~2024-05-04] VITALS: Ht 182.9 cm; Wt 94.1 kg
[~2024-05-04 19:41] MED LIST changes: +AMBIEN 10MG10 MG PO; +AMITRIPTYLINE H50 M1 PO; +CIPRO 500MG TA500 MG PO; +FLOMAX 0.40.4 MG/CAP PO; +GLUCOTROL10 MG PO; +LEVAQUIN 2250 MG/TAB PO; +VENLAFAXINE225 MG PO
[2024-05-04 19:52] VITALS: TEMP 98.3
[2024-05-04 20:24] LABS: BASO # 0.1 K/mm3 (0.0-0.2); BASO % 0.4 % (0.0-2.0); EOS # 0.5 K/mm3 (0.0-0.7); EOS % 2.8 % (0.0-4.0); GRAN % 79.4 % (42.2-75.2); HEMATOCRIT 30.1 % (42.0-52.0); HEMOGLOBIN 9.8 g/dl (13.5-18.0); LYMPH # 1.3 K/mm3 (1.2-3.4); LYMPH % 8.1 % (20.0-51.0); MEAN CELL VOLUME 95 fl (80.0-100.0); MEAN CORPUSCULAR HEMOGLOBIN 31 pg (27-31); MEAN CORPUSCULAR HGB CONC 33 g/dl (33.0-37.0); MEAN PLATELET VOLUME 9.2 fl (7.4-10.4); MONO # 1.4 K/mm3 (0.1-0.6); MONO % 8.6 % (1.7-9.3); PLATELET COUNT 312 K/mm3 (130-400); RED BLOOD COUNT 3.16 M/mm3 (4.20-5.60)
[2024-05-04 20:47] LABS: ALBUMIN 3.2 g/dL (3.4-4.8); BILIRUBIN,TOTAL 0.4 mg/dL (0.2-1.2); CALCIUM 9.6 mg/dL (8.4-10.2); CREATININE, serum 2.22 mg/dL (0.72-1.25); TOTAL PROTEIN 6.7 g/dl (6.2-8.1)
[2024-05-04 21:05] LABS: COLLECTION METHOD CATHETER
[2024-05-04 21:14] LABS: PH 7.5 (5.0-8.5); URINE APPEARANCE CLEAR (CLEAR/HAZY); URINE BLOOD NEGATIVE (NEGATIVE); URINE COLOR YELLOW (YELLOW); URINE GLUCOSE 2+ (NEGATIVE); URINE KETONE NEGATIVE (NEGATIVE); URINE NITRATE NEGATIVE (NEGATIVE); URINE PROTEIN(semi-quant) 1+ (NEGATIVE)
[2024-05-04 23:13] VITALS: BP 138/76; PULSE 85
[2024-05-07] MEDS ORDERED: PRINIVIL5 MG PO (21:18)
[2024-05-07] MEDS ORDERED: GLUCOTROL XL10 MG PO (21:21)
[2024-05-07] MEDS ORDERED: NATURAL MAGNES200 MG PO (21:29)
== END 2024-05-04 23:00 | disposition home or self-care (01) ==
LOC: COL.ER 19:41
PROVIDERS: Nurse Practitioner Primary Care
DX: R33.9 Retention of urine, unspecified (principal); E87.5 Hyperkalemia; R79.89 Other specified abnormal findings of blood chemistry; Z88.2 Allergy status to sulfonamides; Z88.1 Allergy status to other antibiotic agents
CPT/HCPCS: 31860; A4314